=== PATIENT | female | born 1985 | race Caucasian/White ===

== ENCOUNTER 2016-09-12 20:07 | Emergency (ER) | payer OTHER ==
--- NOTE | 2016-09-12 21:35 | DIAGNOSTIC IMAGING REPORT ---
PROCEDURE: XR CHEST 2 VIEW INDICATION: CHEST PAIN TECHNIQUE: Two views. COMPARISON: None. FINDINGS: The cardiomediastinal contour and central vasculature are within normal limits. The lungs are clear without focal consolidation, pleural effusion, or pneumothorax. The visualized osseous structures are intact. IMPRESSION: 1. Normal chest.
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
--- NOTE | 2016-09-12 21:54 | ED ORDER SUMMARY ---
..... Patient: MINDA HADLEY OrderSheet [facility] VisitID: [id number] [place] [address] 31y, F Registration Date/Time: 09/12/2016 ORDER SHEET Weight: 84.8 kg (stated) Allergies: Penicillins, Reglan GENERAL ORDERS: EKG - ER Stat (20:18 09/12/2016 Gavin Go) (Ack 20:20 IJurca ER Tech1) (20:33 CHategekimana) Chest 2V Urgent (20:36 09/12/2016 Gavin Go) (Ack 20:39 LOLITAurca ER Tech1) (20:58 MCampbell) Golf Teacher (Continuous) (CP) (20:37 09/12/2016 Gavin Go) (Ack 20:39 LOLITAurca ER Tech1) (20:49 DDean R.N.) CBC w Diff Urgent (20:37 09/12/2016 Gavin Go) (Ack 20:39 LOLITAurca ER Tech1) (20:49 DDean R.N.) CMP Urgent (20:37 09/12/2016 Gavin Go) (Ack 20:39 LOLITAurca ER Tech1) (20:49 DDean R.N.) UA-Culture if indicated Urgent (20:37 09/12/2016 Gavin Go) (Ack 20:39 LOLITAurca ER Tech1) (20:50 DDean R.N.) PT with INR Urgent (20:37 09/12/2016 Gavin Go) (Ack 20:39 LOLITAurca ER Tech1) (20:50 DDean R.N.) Lipase Urgent (20:37 09/12/2016 Gavin Go) (Ack 20:39 IJurca ER Tech1) (20:50 DDean R.N.) Urine Drug Screen Urgent (20:37 09/12/2016 Gavin Go) (Ack 20:39 IJurca ER Tech1) (20:50 DDean R.N.) Urine Urgent (20:37 09/12/2016 Gavin Go) (Ack 20:39 IJurca ER Tech1) (20:50 DDean R.N.) Troponin-I Urgent (20:37 09/12/2016 Gavin Go) (Ack 20:39 IJurca ER Tech1) (20:50 DDean R.N.) CPK Urgent (20:37 09/12/2016 Gavin Go) (Ack 20:39 IJurca ER Tech1) (20:50 DDean R.N.) TSH Urgent (20:37 09/12/2016 Gavin Go) (Ack 20:39 IJurca ER Tech1) (20:50 DDean R.N.) Pulse oximeter (20:37 09/12/2016 Gavin Go) (Ack 20:39 IJurca ER Tech1) (20:49 DDean R.N.) MEDICATION ORDERS: Aspirin PO 325 mg (Do not crush or chew, NOW) (20:37 09/12/2016 Gavin Go) (Ack 20:51 DDean R.N.) (21:52 DDean R.N.) IV FLUIDS: IV NS : initial bolus 1000 mL (1000 mL/hr), then none - for X1 (NOW) (20:37 09/12/2016 Gavin Go) (20:51 DDean R.N.) ORDER SHEET NOTES: [Electronically signed by Adelina Li R.N. (22:31 09/12/2016)] [Electronically signed by Nayan Billy DO (01:04 09/13/2016)] [Electronically locked/signed by Adelina Li R.N. (22:31 09/12/2016)]
--- NOTE | 2016-09-12 21:54 | ED NURSING NOTES ---
Clinical Report - Nurses [facility] [address] [place] [address] 09/12/2016 20:08 Patient: MINDA HADLEY TRIAGE Triage time 2014. Acuity: LEVEL 3. Chief Complaint: CHEST PAIN and (states she "just feels weird" with dizziness and "a feeling of heat on the backof my head...and a heavy pressure in my chest, its hard to breath). --20:30 Adelina Li R.N. 20:17 09/12/16. BP: 139/83. HR: 97. RR: 18. O2 saturation: 100%. Temp: 98.8 F. --20:30 Adelina Li R.N. Weight: 84.8 kg stated. Height/Length: 65 inches Per Patient. BMI: 31.1. --20:19 Adelina Li R.N. History Arrived by private vehicle. Historian: patient. Accompanied by friend. This started yesterday. Onset. (worse last 2 hours). She has had difficulty breathing, nausea and a cough. ( also c/o left eye pressure and blinking). No sweating episodes or vomiting. PAST MEDICAL HX: Last normal menstrual period- now. SOCIAL HX: Light tobacco smoker (cigarette)- less than 1/2 a pack per day. Occasional alcohol use. No drug use. --20:30 Adelina Li R.N. PROBLEMS: Conjunctivitis. Allergic Rhinitis. Sinusitis. --20:19 Adelina Li R.N. ADDITIONAL SURGERIES: Cholecystectomy. --20:19 Adelina Li R.N. Interventions ID band on patient. To treatment room. --20:30 Adelina Li R.N. PHYSICAL ASSESSMENT 20:17. Ambulatory to room. Patient gowned. GENERAL / NEURO / PSYCH: Alert. Oriented X 4. Appears anxious. RESPIRATORY: Respirations not labored. CVS: Pulses within normal limits. GI / : The patient has had nausea. Abdomen soft. No emesis noted. EXTREMITIES: No lower extremity edema. SKIN: Skin is warm and dry. Skin is non-tender. --21:55 Adelina Li R.N. NURSING PROGRESS NOTES 20:15. Oxygen administered. monitor tech placed on patient; (NSR). Patient gowned. Head of bed elevated. Reassurance given. Patient identifiers checked. Call light placed in reach. Side rails up. Bed placed in lowest position. Patient ready for evaluation- chart flagged. Care transferred. --20:30 Adelina Li R.N. EKG time: (2031 PM). EKG was ordered, performed by a tech and shown to the ED physician. --20:34 Paz Hernandez 20:40 09/12/2016 Site #1 started via IV in the left antecubital space with an 20g angiocath, with aseptic technique and good blood return; one attempt. Blood drawn: rainbow set. Labeled in the presence of the patient and sent to the lab. Saline lock flushed with saline. --20:50 Adelina Li R.N. 20:50 09/12/2016 Started bag #1 1000 mL IV Fluids IV NS (Saline); at 1000 mL/hr over 1 hour(s) via site #1 via IV pump. IV patency established. IV site checked: no pain, redness, or swelling. IV flushed thoroughly pre- and post-medication administration. --20:51 Adelina Li R.N. 21:00 09/12/2016 Aspirin PO Tablets 324 mg given. Allergies verified and confirmed 5 rights. --21:52 Adelina Li R.N. 20:45. Patient walked to radiology with tech. --21:53 Adelina Li R.N. 20:55. Patient walked back to ED from radiology with tech. (2054). --21:53 Adelina Li R.N. 20:55. Patient ID band checked for patient name and birthdate: patient confirmed. Clean catch urine collected with return of yellow-colored clear urine; sample sent to lab for urinalysis, culture, drug screen and HCG. Specimen labeled in the presence of the patient. --21:54 Adelina Li R.N. 21:00 09/12/16. BP: 138/74. HR: 84. RR: 18. O2 saturation: 99%. Temp: deferred. Pain level now: 08/17. --22:27 Adelina Li R.N. 21:30. ( watching t.v. daughter at bedside. in no acute distress. waiting on lab results. given additional blanket). --22:28 Adelina Li R.N. 22:00 09/12/2016 Site #1 removed upon discharge. Bandaid applied. --22:30 Adelina Li R.N. 22:00 09/12/2016 IV Fluids IV NS Discontinued: bag #1 infused upon discharge. Total amount infused: 1000 mL. IV patency established. IV site checked: no pain, redness, or swelling. IV flushed thoroughly. --22:30 Adelina Li R.N. DISPOSITION / DISCHARGE 22:10. Condition at departure: improved and stable. No learning barriers present. Discharge instructions provided and reviewed with the patient and family. Reviewed referrals (follow up with your doctor tomorrow). Patient and family verbalized understanding. Written instructions provided in Azeri. The patient was discharged home and accompanied by family. She left the Emergency Department ambulatory and via private vehicle. Family member driving. --22:29 Adelina Li R.N. 22:10 09/12/16. BP: 114/67. HR: 86. RR: 18. O2 saturation: 100%. Temp: deferred. Pain level now: 07/20. --22:29 Adelina Li R.N. Locked/Released at 09/12/2016 22:31 by Adelina Li R.N.
--- NOTE | 2016-09-12 21:54 | ED ORDER SUMMARY ---
..... Patient: MINDA HADLEY OrderSheet [facility] VisitID: [id number] [place] [address] 31y, F Registration Date/Time: 09/12/2016 ORDER SHEET Weight: 84.8 kg (stated) Allergies: Penicillins, Reglan GENERAL ORDERS: EKG - ER Stat (20:18 09/12/2016 Gavin Go) (Ack 20:20 IJurca ER Tech1) (20:33 CHategekimana) Chest 2V Urgent (20:36 09/12/2016 Gavin Go) (Ack 20:39 LOLITAurca ER Tech1) (20:58 MCampbell) Bottling Room Worker (Continuous) (CP) (20:37 09/12/2016 Gavin Go) (Ack 20:39 LOLITAurca ER Tech1) (20:49 DDean R.N.) CBC w Diff Urgent (20:37 09/12/2016 Gavin Go) (Ack 20:39 LOLITAurca ER Tech1) (20:49 DDean R.N.) CMP Urgent (20:37 09/12/2016 Gavin Go) (Ack 20:39 LOLITAurca ER Tech1) (20:49 DDean R.N.) UA-Culture if indicated Urgent (20:37 09/12/2016 Gavin Go) (Ack 20:39 LOLITAurca ER Tech1) (20:50 DDean R.N.) PT with INR Urgent (20:37 09/12/2016 Gavin Go) (Ack 20:39 LOLITAurca ER Tech1) (20:50 DDean R.N.) Lipase Urgent (20:37 09/12/2016 Gavin Go) (Ack 20:39 IJurca ER Tech1) (20:50 DDean R.N.) Urine Drug Screen Urgent (20:37 09/12/2016 Gavin Go) (Ack 20:39 IJurca ER Tech1) (20:50 DDean R.N.) Urine Urgent (20:37 09/12/2016 Gavin Go) (Ack 20:39 IJurca ER Tech1) (20:50 DDean R.N.) Troponin-I Urgent (20:37 09/12/2016 Gavin Go) (Ack 20:39 IJurca ER Tech1) (20:50 DDean R.N.) CPK Urgent (20:37 09/12/2016 Gavin Go) (Ack 20:39 IJurca ER Tech1) (20:50 DDean R.N.) TSH Urgent (20:37 09/12/2016 Gavin Go) (Ack 20:39 IJurca ER Tech1) (20:50 DDean R.N.) Pulse oximeter (20:37 09/12/2016 Gavin Go) (Ack 20:39 IJurca ER Tech1) (20:49 DDean R.N.) MEDICATION ORDERS: Aspirin PO 325 mg (Do not crush or chew, NOW) (20:37 09/12/2016 Gavin Go) (Ack 20:51 DDean R.N.) (21:52 DDean R.N.) IV FLUIDS: IV NS : initial bolus 1000 mL (1000 mL/hr), then none - for X1 (NOW) (20:37 09/12/2016 Gavin Go) (20:51 DDean R.N.) ORDER SHEET NOTES: [Electronically signed by Adelina Li R.N. (22:31 09/12/2016)] [Electronically signed by Nayan Billy DO (01:04 09/13/2016)] [Electronically locked/signed by Adelina Li R.N. (22:31 09/12/2016)]
--- NOTE | 2016-09-13 01:05 | ED MED RECONCILIATION SUMMARY ---
Patient: MINDA HADLEY Medication Reconciliation Report [facility] VisitID: [id number] [address] [place] [address] 31y, F Registration Date/Time: 09/12/2016 Weight: 84.8 kg Height/Length: 65 in. BMI: 31.1 ALLERGIES: Penicillins, Reglan The patient's Home Medications are listed below: THE FOLLOWING MEDICATIONS NEED TO BE RECONCILED: Adderall Oral The source(s) of the original Home Medication information: Not obtained. The following Medications were given to the patient in the Emergency Department: IV NS IV Fluids bolus 0, then 1000 mL/hr, administered: 09/12/2016 8:50:00 PM Aspirin [PO] PO 324 mg, administered: 09/12/2016 9:00:00 PM The following Medications were prescribed to the patient: None.
--- NOTE | 2016-09-13 01:05 | ED MAR SUMMARY ---
..... Medication Administration Record [facility] [address] [place] [address] Patient: MINDA HADLEY Visit ID: [id number] 31y, F Weight: 84.8 kg Height/Length: 65 in BMI: 31.1 ALLERGIES: Reglan, Penicillins Start 20:50 09/12/2016 Adelina Li R.N., Stop 22:00 09/12/2016 Adelina Li R.N. Medication Administered: IV NS (SALINE), Dose: IV Fluids over 1 hour(s), Rate: 1000 mL/hr, Dispensed: 1000 mL bag, Site: #1 left . Medication Ordered: IV NS : initial bolus 1000 mL (1000 mL/hr), then none - for X1 (NOW). Given 21:00 09/12/2016 Adelina Li R.N. Medication Administered: ASPIRIN [PO], Dose: 324 mg Tablets PO. Medication Ordered: Aspirin PO 325 mg (Do not crush or chew, NOW).
--- NOTE | 2016-09-13 01:05 | ED DISCHARGE INSTRUCTIONS ---
Patient: MINDA HADLEY General Instructions [facility] VisitID: [id number] [place] [address] 31y, F Registration Date/Time: 09/12/2016 Acute dizziness Atypical chest pain .12 lead EKG performed. INSTRUCTIONS Do not work for two days. Drink plenty of fluids. Do not smoke. Seek medical help to quit smoking. Warnings: Further evaluation is necessary. It is very important to follow up with a physician. GENERAL WARNINGS: Return or contact your physician immediately if your condition worsens or changes unexpectedly, if not improving as expected, or if other problems arise. Follow-up: Follow up with your doctor [place] - or other provider tomorrow. ADDITIONAL INFORMATION Chest Pain, Noncardiac Based on your visit today, the exact cause of your chest pain is not certain. Your condition does not seem serious and your pain does not appear to be coming from your heart. However, sometimes the signs of a serious problem take more time to appear. Therefore, please watch for the warning signs listed below. Home Care: Rest today and avoid strenuous activity. Take any prescribed medicine as directed. Follow Up with your doctor or this facility as instructed or if you do not start to feel better within 24 hours. Get Prompt Medical Attention if any of the following occur: A change in the type of pain: if it feels different, becomes more severe, lasts longer, or begins to spread into your shoulder, arm, neck, jaw or back Shortness of breath or increased pain with breathing Cough with dark colored sputum (phlegm) or blood Weakness, dizziness, or fainting Fever of 100.4F (38C) or higher, or as directed by your healthcare provider Swelling, pain or redness in one leg Dizziness [Uncertain Cause] Dizziness is a common symptom sometimes described as "lightheadedness" or feeling like you are going to faint. If it lasts for only a few seconds and is related to changes in position (such as getting up after lying or sitting for a long time), it is usually not a sign of anything serious. Dizziness that lasts for minutes to hours, or comes on for no apparent reason, may be a sign of a more serious problem (such as dehydration, a medicine reaction, disease of the heart or brain). Today's exam did not show an exact cause for your dizzy spell . Sometimes additional tests are required before a cause can be found. Therefore, it is important to follow up with your doctor if your symptoms continue. Home Care: 1) If a dizzy spell occurs and lasts more than a few seconds, lie down until it passes. If you are lying down, then you cannot hurt yourself by falling if you do faint. 2) Do not drive or operate dangerous equipment until the dizzy spells have stopped for at least 48 hours. 3) If dizzy spells occur with sudden standing, this may be a sign of mild dehydration. Drink extra fluids over the next few days. 4) If you recently started a new medicine or if you had the dose of a current medicine increased (especially blood pressure medicine), talk with the prescribing doctor about your symptoms. Dose adjustments may be needed. Follow Up with your doctor for further evaluation within the next seven days, if your symptoms continue. Get Prompt Medical Attention if any of the following occur: -- Worsening of your symptoms -- Fainting, headache or seizure -- Repeated vomiting -- Feeling like you or the room is spinning -- Chest, arm, neck, back or jaw pain -- Palpitations (the sense that your heart is fluttering or beating fast or hard) -- Shortness of breath -- Blood in vomit or stool (black or red color) -- Weakness of an arm or leg or one side of the face -- Difficulty with speech or vision How To Quit Smoking Smoking is one of the hardest habits to break. About half of all those who have ever smoked have been able to quit, and most of those (about 70%) who still smoke want to quit. Here are some of the best ways to stop smoking. Keep Trying: It takes most smokers about 8 tries before they are finally able to fully quit. So, the more often you try and fail, the better your chance of quitting the next time! So, don't give up! Go Cold [place]: Most ex-smokers quit cold turkey. Trying to cut back gradually doesn't seem to work as well, perhaps because it continues the smoking habit. Also, it is possible to fool yourself by inhaling more while smoking fewer cigarettes. This results in the same amount of nicotine in your body! Get Support: Support programs can make an important difference, especially for the heavy smoker. These groups offer lectures, methods to change your behavior and peer support. Call the free national Quitline for more information. 297-IWZO-XZE (414-138-0206). Low-cost or free programs are offered by many hospitals, local chapters of the [employer] (823-290-0717) and the [employer] (444-757-5210). Support at home is important too. Non-smokers can help by offering praise and encouragement. If the smoker fails to quit, encourage them to try again! Nqlr-Zlw-Aliwtkk Medicines: For those who can't quit on their own, Nicotine Replacement Therapy (NRT) may make quitting much easier. Certain aids such as the nicotine patch, gum and lozenge are available without a prescription. However, it is best to use these under the guidance of your doctor. The skin patch provides a steady supply of nicotine to the body. Nicotine gum and lozenge gives temporary bursts of low levels of nicotine. Both methods take the edge off the craving for cigarettes. WARNING: If you feel symptoms of nicotine overdose, such as nausea, vomiting, dizziness, weakness, or fast heartbeat, stop using these and see your doctor. Prescription Medicines: After evaluating your smoking patterns and prior attempts at quitting, your doctor may offer a prescription medicine such as bupropion (Zyban, Wellbutrin), varenicline (Chantix, Champix), a niocotine inhaler or nasal spray. Each has its unique advantage and side effects which your doctor can review with you. Health Benefits Of Quitting: The benefits of quitting start right away and keep improving the longer you go without smokin minutes: blood pressure and pulse return to normal 8 hours: oxygen levels return to normal 2 days: ability to smell and taste begins to improve as damaged nerves start to regrow 2-3 weeks: circulation and lung function improves 1-9 months: decreased cough, congestion and shortness of breath; less tired 1 year: risk of heart attack decreases by half 5 years: risk of lung cancer decreases by half; risk of stroke becomes the same as a non-smoker For information about how to quit smoking, visit the following links: National [employer] [place] , Clearing the Air, Quit Smoking Today - an online booklet. http://www.smokefree.gov/pubs/clearing_the_air.pdf Smokefree.gov http://smokefree.gov/ QuitNet http://www.quitnet.com/ You have been given the following additional information: Chest Pain, Noncardiac Dizziness, Unk Cause Smoking Cessation Do not work for two days. (Electronically signed by Nayan Billy DO 09/13/2016 1:04)
--- NOTE | 2016-09-13 01:05 | ED MED RECONCILIATION SUMMARY ---
Patient: MINDA HADLEY Medication Reconciliation Report [facility] VisitID: [id number] [address] [place] [address] 31y, F Registration Date/Time: 09/12/2016 Weight: 84.8 kg Height/Length: 65 in. BMI: 31.1 ALLERGIES: Penicillins, Reglan The patient's Home Medications are listed below: THE FOLLOWING MEDICATIONS NEED TO BE RECONCILED: Adderall Oral The source(s) of the original Home Medication information: Not obtained. The following Medications were given to the patient in the Emergency Department: IV NS IV Fluids bolus 0, then 1000 mL/hr, administered: 09/12/2016 8:50:00 PM Aspirin [PO] PO 324 mg, administered: 09/12/2016 9:00:00 PM The following Medications were prescribed to the patient: None.
--- NOTE | 2016-09-13 01:05 | ED MAR SUMMARY ---
..... Medication Administration Record [facility] [address] [place] [address] Patient: MINDA HADLEY Visit ID: [id number] 31y, F Weight: 84.8 kg Height/Length: 65 in BMI: 31.1 ALLERGIES: Reglan, Penicillins Start 20:50 09/12/2016 Adelina Li R.N., Stop 22:00 09/12/2016 Adelina Li R.N. Medication Administered: IV NS (SALINE), Dose: IV Fluids over 1 hour(s), Rate: 1000 mL/hr, Dispensed: 1000 mL bag, Site: #1 left . Medication Ordered: IV NS : initial bolus 1000 mL (1000 mL/hr), then none - for X1 (NOW). Given 21:00 09/12/2016 dAelina Li R.N. Medication Administered: ASPIRIN [PO], Dose: 324 mg Tablets PO. Medication Ordered: Aspirin PO 325 mg (Do not crush or chew, NOW).
== END 2016-09-12 22:10 | disposition home or self-care (01) ==
LOC: ED SRH 20:07
DX: R07.89 Other chest pain (principal); R42 Dizziness and giddiness; F90.9 Attention-deficit hyperactivity disorder, unspecified type; Z79.899 Other long term (current) drug therapy; Z88.0 Allergy status to penicillin; Z88.8 Allergy status to other drugs, medicaments and biological substances; Z86.79 Personal history of other diseases of the circulatory system
CPT/HCPCS: 90004; 90100; 90616; 92235; 92610; 92760; 92761; 92762; 92763; 92764; 92765; 92766; 92767; 93070; 93140; 94060; 95059